=== PATIENT | female | born 1925 | race Caucasian/White ===

== ENCOUNTER 2016-10-26 19:22 | Emergency (ER) | payer MEDICARE ==
[~2016-10-26] VITALS: Ht 152.4 cm; Wt 41.3 kg
[~2016-10-26 19:22] MED LIST: "\\\"WATER PILL\\\""; ALBUTEROL0.09 MG/A1 INH; ALPHAGAN 5 ML5 ML OPH; ALPHAGAN P 10 M10 M1 OPH; ALPHAGAN P 5 ML5 M1 OPH; ARICEPT10 M1 PO; ASPIR-TRIN325 MG PO; ASPIRIN CHILDRE80 MG PO; ASPIRIN81 M1 PO; ATENOLOL50 M1 PO; ATENOLOL50 MG PO; CEFDINIR PO; CIPRO500 MG PO; COLACE100 MG PO; COSOPT 2%-0.5%10 ML OPH; DONEPEZIL HYDRO10 M1 PO; DORZOLAMIDE HCL10 ML OP; FERROUS SULFAT324 M1 PO; HYDROCODONE BIT1 T11 PO; IMDUR ER30 MG PO; IRON325 M1 PO; JANTOVEN4 M1 PO; KLOR-CON 1010 MEQ PO; LATANOPROST2.5 ML OP; LEVAQUIN250 M1 PO; LISINOPRIL5 MG PO; LOVENOX30 MG/0.3 SC; METRONIDAZOLE500 M1 PO; NIFEREX150 MG PO; NORCO 5-325 TA1 EACH PO; PRAVACHOL40 MG PO; PRAVASTATIN SOD40 MG PO; PREDNISONE10 MG PO; PREVAGEN PO; PRINIVIL5 MG PO; TENORMIN50 MG PO; TESSALON PERLE100 M1 PO; TIMOPTIC 0.5% 55 ML OP; TIMOPTIC 0.5% 55 ML OPH; TRAMADOL HCL50 MG PO; TRUSOPT 5 ML5 ML OPH; VICODIN 5/500 505 MG PO; VITAMIN D32000 IU PO; XALATAN 0.005%2.5 ML INTRAOC; ZITHROMAX250 MG PO
[2016-10-26] MEDS ORDERED: CEPHALEXIN500 M1 PO (20:46)
[2016-10-26] MEDS ORDERED: Nizoral 2%15 GM T (20:46)
== END 2016-10-26 20:51 | disposition home or self-care (01) ==
LOC: ED 19:22
DX: B35.3 Tinea pedis (principal); L08.89 Other specified local infections of the skin and subcutaneous tissue; Z79.899 Other long term (current) drug therapy